=== PATIENT | male | born 2000 | race Caucasian/White ===

== ENCOUNTER 2021-09-06 09:37 | Emergency (ER) | payer OTHER, SELFPAY ==
[2021-09-06 10:26] VITALS: BP 128/76; PULSE 91; RESP 19; TEMP 37.4; O2SAT 99; BMI 28.1
--- NOTE | 2021-09-06 10:40 | HMH.EDUTC ---
[facility] [place] Clinical Impression: Viral syndrome Disposition: Home, Self-Care Condition on Discharge: Good Instructions: Sore Throat, Diarrhea, DI for COVID-19 (Suspected or Confirmed ), Preventing the Spread of Coronavirus Discharge Instructions Additional Instructions: *Monitor Temp, Over the counter Motrin or Tylenol as directed/as needed Tylenol every 4 hours and Motrin every 6 hours (as long as your family doctor has told you that you can take it) for fever or pain. and straight to ER if unable to lower temp less than 101.0 after medication given *Warm salt water gargles may help to soothe the throat *Throat Lozenges *Warm fluids like tea with honey may help to soothe the throat *Sleep elevated *Humidifier/Vaporizer Your throat swab was sent for culture. Those results are typically sent to your primary care. Be sure to follow up in 2-3 days with your family doctor/primary care physician if no improvement so they can review those result and treat if necessary. If you don?t have a primary care doctor, I recommend you get one but in the mean time, you will have to return to a walk in clinic Follow up IMMEDIATELY for new or worsening symptoms or no Noticeable improvement over the next 48-72 hours. 911 for difficulty breathing or swallowing You were tested for today for COVID19 your test result should be back in the next 24-48 hours, you may check your results on the [facility] My Health Portal if you have trouble logging on you may call [employer] support for assistance You was given a handout with instructions for Self Quarantine and Self isolation for while you wait on test results and what to do if they are positive If you are positive the Health Dept will be contacting you also Make sure to take your Vitamins Vit. C Vit D and Zinc if you can take them Referrals: Provider,Referral, [Primary Care Provider] - As needed Forms: Work/School Release Time of Disposition: 11:06 Medical Decision Making - Tim Inquiry Pt receiving controlled substance: No Tim was queried for this patient: No Vital Signs: 09/06/21 10:26 Temperature 99.3 F Temperature Source Oral Pulse Rate [Left] 91 H Respiratory Rate 19 Blood Pressure [Right Arm] 128/76 Blood Pressure Mean [Right Arm] 93 02 Sat by Pulse Oximetry 99 - Lab Data Lab results reviewed: Yes: I reviewed the patient's lab results. Lab Results 09/06/21 10:20: Group A Strep Rapid Negative Orders (Tests/Meds): ORDERS Category Date Time Status Strep Screen Confirmation Stat Micro 09/06/21 10:20 Received [facility] [place] HPI - General Stated complaint: sore throat, fever, chills Time Seen by Provider: 09/06/21 10:40 Mode of Arrival: Ambulatory Source of Information: Patient Limitations: No Limitations Description of Symptoms (Recalled from Triage Doc. by RN): pt c/o a sore throat, chills, diarrhea and body aches x4 days. HEENT Symptoms (Recalled from RN notes): Yes (sore throat) Resp Symptoms (Recalled from RN notes): No Skin Symptoms (Recalled from RN notes): No MS Symptoms (Recalled from RN notes): No Functional Status (Recalled from RN notes): wnl - History of Present Illness Provider Complaint: Patient states that he has not felt well for about 4 days State that he has been COVID tested and awaiting PCR results State that he has been having sore throat, fever, chills, body aches and diarrhea States that he is wanting to get tested for flu and strep here to see if he may have it - Related Data Home Medications Medication Instructions Recorded Confirmed No Known Home Medications 10/04/18 10/04/18 Allergies Allergy/AdvReac Type Severity Reaction Status Date / Time No Known Allergies Allergy Verified 10/04/18 16:16 - Worker's Comp Is this a Worker's Comp case?: No [facility] History - Hepatitis A Screen Drug use history?: No High risk sexual behaviors?: No History of sexually transmitted infection?: No 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
[2021-09-06 10:54] LABS: Strep Scrn Group A (Rapid) Negative (Negative)
[2021-09-06 11:22] VITALS: BP 128/76; PULSE 91; RESP 19; TEMP 37.4
== END 2021-09-06 11:23 | disposition home or self-care (01) ==
PROVIDERS: Emergency Provider Nurse Practitioner
DX: B34.9 Viral infection, unspecified (principal); J45.909 Unspecified asthma, uncomplicated
CPT/HCPCS: 87430; 99202; G0463

== ENCOUNTER 2024-03-23 09:34 | Emergency (ER) | payer OTHER, SELFPAY ==
[2024-03-23 09:36] VITALS: BP 132/67; PULSE 89; RESP 18; TEMP 36.6; O2SAT 98; BMI 37.9
--- NOTE | 2024-03-23 09:44 | PC.NURSE ---
DR SMITH AT BEDSIDE
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
[2024-03-23] MEDS: TET/DIPHTH/PERT-ADULT 0.5ML SYRINGE 0.5 ML IM (09:57)
--- NOTE | 2024-03-23 09:58 | PC.NURSE ---
PT TO XR
--- NOTE | 2024-03-23 10:01 | PC.NURSE ---
Pt back in room from RAD
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
[2024-03-23 10:42] VITALS: BP 147/87; PULSE 78; RESP 16; TEMP 36.7; O2SAT 97
== END 2024-03-23 10:43 | disposition home or self-care (01) ==
PROVIDERS: Emergency Provider Emergency Medicine
DX: S21.212A Laceration without foreign body of left back wall of thorax without penetration into thoracic cavity, initial encounter (principal); W22.8XXA Striking against or struck by other objects, initial encounter; Z23 Encounter for immunization
CPT/HCPCS: 12001; 71046; 90471; 90715; 99283